=== PATIENT | female | born 1995 | race Caucasian/White ===

== ENCOUNTER 2018-06-19 11:31 | Emergency (ER) | payer OTHER ==
--- NOTE | 2018-06-19 12:29 | EDPHY ---
H & P Stated Complaint: syncope Time Seen by Provider: 06/19/18 11:54 HPI/ROS: CLINICAL IMPRESSION: Syncope ASSESSMENT/PLAN: 22-year-old female presents to the emergency department by private vehicle after a reported syncopal event while walking to the restroom after awakening this morning. Patient did hit the back of her head but denies loss of consciousness. Fall was not witnessed. She is neurologically intact, no ataxia , no reports of severe headache or associated nausea, vomiting, dizziness or vertigo. No reproducible midline neck pain, upper extremity radiculopathy, hemotympanum, Mondragon sign. Risks and benefits for CT head discussed and patient has refused. Additionally, she prefers to pursue any additional workup including EKG and labs with her primary care doctor. Vitals are stable. She has declined analgesics. I strongly encouraged PCP follow-up in the next 24-48 hours with low threshold for return to ED sooner for worsening symptoms, recurrent syncopal episode, chest pain, dizziness, severe headache, vomiting, or other concerns as outlined and discharge papers. Patient has verbalized understanding. DIFFERENTIAL DX: Differential includes but not limited to vasovagal syncope, cardiac arrhythmia, electrolyte imbalance, dehydration, , intracranial hemorrhage, skull fracture ED PROCEDURES: Patient refused workup ED COURSE: 1315: Patient has refused ED workup. States she would like to get this with her primary care doctor. Vitals remained stable, she is alert, oriented with no focal neurological deficits. Risks and indications for CT scan were discussed she has refused. Low clinical suspicion for intracranial hemorrhage and skull fracture. 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 CHIEF COMPLAINT: Syncope HPI: 22-year-old female presents to the emergency department by private vehicle after she reportedly had a fainting episode this morning. Patient reports she awoke this morning and while walking to the bathroom felt lightheaded, and felt herself go down. She thinks she hit her head on the ground and believes she was out for"a couple seconds". This was not witnessed by anyone. She was able to get up, use the restroom, and drive herself to the ED. She reports no past history of syncope, exercise intolerance, or congenital heart abnormalities. She has no chest pain or shortness of breath. No reports of severe headache, dizziness, vertigo, nausea or vomiting. She has not take anything for headache and does not want anything at this time. She reports her pain as 2/10. No weakness or numbness to arms or legs. No abdominal pain. She is not anticoagulated. She admits to significant stress surrounding finals with school and is tearful at times. PMH: No significant past medical history Pertinent Past Surgical History: Noncontributory Family History: No family history of sudden cardiac at young age, arrhythmia, PE or DVT Social History: Student, nonsmoker no medication ROS: All other systems negative Constitutional: No fever, no chills, appetite change. Eyes: No discharge, vision change ENT: No sore throat, congestion, ear pain. Cardiovascular: No chest pain, no palpitations. Respiratory: No cough, no shortness of breath. Gastrointestinal: No abdominal pain, no vomiting, diarrhea. Genitourinary: No hematuria, dysuria, flank pain, pelvic pain Musculoskeletal: No back pain, joint swelling, joint pain, myalgias. Skin: No rashes, color change. Neurological: Mild headache and dizziness, weakness. PHYSICAL EXAM: General Appearance: Alert, oriented, appropriate, cooperative, NAD, well hydrated, non-toxic appearing, VSS, no hypoxia, tearful at times, admits to feeling anxious HEENT: TMs are clear bilaterally no perforation or FB, no injection, no evidence of serous or mucopurulent otitis. Oropharynx clear is no erythema or exudates, no tonsillar hypertrophy or asymmetry. Dentition without abnormality , no hemotympanum or Mondragon sign. Eyes: PERRLA, no acute vision change, nystagmus, swelling, discharge, pain or photosensitivity. Conjunctiva pink, no pallor or injection Neck: Supple, nontender, no lymphadenopathy, no midline pain, FROM, no meningismus, no upper extremity radiculopathy Respiratory: There are no retractions, lungs are clear to auscultation. Cardiac: Regular rate and rhythm, no murmurs or gallops. Gastrointestinal: Abdomen is soft, nontender, bowel sounds normal, no masses/ hernia, no rigidity, guarding or focal peritoneal findings. Neurological: Alert and oriented x 3, CN 2-12 grossly intact, normal gait no ataxia, DTR's intact, normal sensation and strength Skin: Warm, dry, no rashes, no nodules on palpation. Musculoskeletal: Extremities are symmetrical, full range of motion, no tenderness, deformity, swelling, or erythema. Psychiatric: Patient is oriented X 3, there is no agitation. MDM: Patient was seen independently by established practice protocols. Secondary supervising physician at time of evaluation was Dr. Patiño Diagnosis: Syncope. New, requires workup Summary: See Assessment and Plan for summary of ED visit Clinical lab tests: Patient refused. Independent visualization of images, tracing, or specimens: Patient refused. Risk of comlications, morbidity, mortality: Presenting problem moderate Diagnostic procedures low Management Options low Patient Progress: Stable. - Personal History LMP (Females 10-55): 1-7 Days Ago Current Tetanus/Diphtheria Vaccine: Yes Current Tetanus Diphtheria and Acellular Pertussis (TDAP): Yes Tetanus Vaccine Date: less than 10 years - Medical/Surgical History Hx Asthma: No Hx Chronic Respiratory Disease: No Hx Diabetes: No Hx Cardiac Disease: No Hx Renal Disease: No Hx Cirrhosis: No Hx Alcoholism: No Hx HIV/AIDS: No Hx Splenectomy or Spleen Trauma: No Other PMH: migraine - Social History Smoking Status: Never smoked Constitutional: Initial Vital Signs Temperature (C) 36.9 C 06/19/18 11:35 Heart Rate 90 06/19/18 11:35 Respiratory Rate 16 06/19/18 11:35 Blood Pressure 127/84 H 06/19/18 11:35 O2 Sat (%) 97 06/19/18 11:35 O2 Delivery Mode Room Air Allergies/Adverse Reactions: No Known Allergies Allergy (Verified 06/19/18 11:34) Home Medications: Medication Instructions Recorded Sumatriptan 06/19/18 Departure - Departure Disposition: Home, Routine, Self-Care Condition: Good Instructions: Concussion (ED), Head Injury (ED) Additional Instructions: DISCHARGE INSTRUCTIONS FROM YOUR DOCTOR Thank you for visiting our emergency department today. Please keep in mind that discharge from the emergency department does not mean that there is nothing wrong - it simply means that we have not identified an emergency condition that requires further evaluation or treatment in the hospital. You should always plan to follow up with primary care for re-evaluation of your condition in the next 2-3 days. If you have been referred to a specialist, please call as soon as possible (today or tomorrow) to schedule your follow up appointment at the appropriate time. You have declined additional workup in the ED today. We offered EKG, labs and did discuss the risks and benefits for CT head imaging which you have declined. Please make a follow-up appointment with her primary care doctor this week. Please try to avoid TV, video games, texting, and do not participate in contact sports until cleared by her primary care doctor. Please return to the emergency department for severe headache, nausea and vomiting, dizziness or vertigo, trouble walking, altered mental status, seizures or any other concern. People present with illnesses and injuries in different ways, and it is always possible that we have missed something. You may always return for re-evaluation if symptoms worsen or if they are not improving or if you develop new/different symptoms. Again, thank you for choosing our emergency department. We hope that you feel better. Referrals: JANELL ANDRADE MD [Primary Care Provider] - As per Instructions
[2018-06-19 13:29] VITALS: BP 111/69
== END 2018-06-19 13:29 | disposition home or self-care (01) ==
DX: R55 Syncope and collapse (principal); W01.198A Fall on same level from slipping, tripping and stumbling with subsequent striking against other object, initial encounter